=== PATIENT | male | born 1965 | race Two or more races ===

== ENCOUNTER 2016-12-20 18:51 | Emergency (ER) | payer BC ==
[~2016-12-20] VITALS: Ht 160 cm; Wt 76.2 kg
[2016-12-20 19:00] VITALS: BP 154/90
[2016-12-20] MEDS ORDERED: IBUPROFEN 600 MG TAB PO ONE (20:00)
[2016-12-20] MEDS ORDERED: CYCLOBENZAPRINE HCL 10 MG TAB PO ONE (20:00)
== END 2016-12-20 20:31 | disposition home or self-care (01) ==
LOC: ER 18:55
DX: S46.812A Strain of other muscles, fascia and tendons at shoulder and upper arm level, left arm, initial encounter (principal); V49.9XXA Car occupant (driver) (passenger) injured in unspecified traffic accident, initial encounter; Y93.89 Activity, other specified; Y99.8 Other external cause status; Y92.488 Other paved roadways as the place of occurrence of the external cause

== ENCOUNTER → 2020-10-13 | Outpatient (CLI) | payer BC ==
[2020-10-13 18:06] LABS: BUN/Creatinine Ratio 19.1; Calcium 8.8 mg/dL (8.5-10.1); Potassium 5.3 mmol/L (3.5-5.1)
== END | disposition home or self-care (01) ==
LOC: LAB 17:39
PROVIDERS: ATTEND Internal Medicine
DX: N18.9 Chronic kidney disease, unspecified (principal); E87.5 Hyperkalemia
CPT/HCPCS: 36415; 80048

== ENCOUNTER → 2020-11-11 | Outpatient (CLI) | payer BC ==
[2020-11-11 18:08] LABS: BUN/Creatinine Ratio 13.6; Calcium 8.3 mg/dL (8.5-10.1); Potassium 4.1 mmol/L (3.5-5.1)
== END | disposition home or self-care (01) ==
LOC: LAB 17:06
PROVIDERS: ATTEND Internal Medicine
DX: I12.9 Hypertensive chronic kidney disease with stage 1 through stage 4 chronic kidney disease, or unspecified chronic kidney disease (principal); N18.4 Chronic kidney disease, stage 4 (severe); E79.0 Hyperuricemia without signs of inflammatory arthritis and tophaceous disease
CPT/HCPCS: 36415; 80048

== ENCOUNTER → 2020-12-31 | Outpatient (CLI) | payer BC | END | disposition home or self-care (01) | LOC: LAB 09:52 | PROVIDERS: ATTEND Nurse Practitioner Family | DX: Z20.822 Contact with and (suspected) exposure to COVID-19 (principal) | CPT/HCPCS: C9803; U0003 ==

== ENCOUNTER 2022-02-19 09:15 | Inpatient (IN) | payer BC, MEDICAID ==
[~2022-02-19] VITALS: Ht 160 cm; Wt 79.2 kg
[2022-02-19] MEDS ORDERED: SODIUM CHLORIDE 0.9% 1,000 ML IVB ONE (09:30)
[2022-02-19 10:06] LABS: Basophils # (auto) 0 10 ^3/uL (0-0.2); Basophils % (auto) 0.6 % (0.0-2.0); Eosinophils # (auto) 0.5 10 ^3/uL (0-0.8); Eosinophils % (auto) 7.1 % (0.0-7.0); Hematocrit 40.8 % (41.0-53.0); Hemoglobin 13.3 g/dL (13.5-17.5); Lymphocytes # (auto) 1.7 10 ^3/uL (0.4-5.4); Lymphocytes % (auto) 22.6 % (10.0-50.0); Mean Corpuscular Hemoglobin 28.6 pg (28.0-32.0); Mean Corpuscular Hgb Conc. 32.6 g/dL (32.0-36.0); Mean Corpuscular Volume 87.7 fL (80.0-100.0); Monocytes # (auto) 0.5 10 ^3/uL (0-1.3); Monocytes % (auto) 5.9 % (0.0-12.0); Neutrophils # (auto) 4.9 10 ^3/uL (1.6-8.6); Neutrophils % (auto) 63.8 % (37.0-80.0); Nucleated Red Blood Cells % 0.1 %; Red Blood Cells 4.65 10^6/uL (4.5-5.90); Red Cell Distribution Width 13.7 % (11.8-14.3); White Blood Cell 7.6 10^3/uL (4.4-10.8)
[2022-02-19 10:15] LABS: Urine WBC None Seen /hpf (0 - 3)
[2022-02-19 10:15] LABS: Albumin 4.1 g/dL (3.4-5.0); Calcium 8.5 mg/dL (8.5-10.1); Potassium 4.5 mmol/L (3.5-5.1)
[2022-02-19 10:23] LABS: BUN/Creatinine Ratio 14.7; Bilirubin, Total 0.4 mg/dL (0.2-1.0); Total Protein 8.4 g/dL (6.4-8.2)
[2022-02-19 10:49] LABS: Urine Bacteria NONE SEEN /hpf (None Seen); Urine Blood 1+ /uL (Negative); Urine Specific Gravity 1.011 (1.001-1.035)
[2022-02-19] MEDS ORDERED: MORPHINE SULFATE INJ 2 MG/ml SYRG IV PRN (12:30)
[2022-02-19] MEDS ORDERED: hydrALAZINE HCL 20 MG/ML VL IV PRN (13:15)
[2022-02-19] MEDS: SODIUM CHLORIDE 0.9% 1,000 ML IV SCH ×2 (13:48→22:19)
[2022-02-19 13:52] LABS: Cholesterol 118 mg/dL (< 200); HDL Cholesterol 27 mg/dL (40-59); LDL Cholesterol 86 mg/dL (< 100); Magnesium 2.2 mg/dL (1.6-2.6); Phosphorus 3.9 mg/dL (2.5-4.90); Triglycerides 193 mg/dL (< 150)
[2022-02-19 17:00] VITALS: BP 133/77
[2022-02-19 20:00] VITALS: BP 107/69
[2022-02-19 21:59] VITALS: BP 107/69
[2022-02-20] MEDS: SODIUM CHLORIDE 0.9% 1,000 ML IV SCH (02:35)
[2022-02-20 05:00] VITALS: BP 150/71
[2022-02-20 06:11] LABS: Basophils # (auto) 0.1 10 ^3/uL (0-0.2); Basophils % (auto) 0.9 % (0.0-2.0); Eosinophils # (auto) 0.7 10 ^3/uL (0-0.8); Eosinophils % (auto) 9.9 % (0.0-7.0); Hematocrit 36.9 % (41.0-53.0); Hemoglobin 12.4 g/dL (13.5-17.5); Lymphocytes # (auto) 2.1 10 ^3/uL (0.4-5.4); Lymphocytes % (auto) 29.3 % (10.0-50.0); Mean Corpuscular Hemoglobin 29.5 pg (28.0-32.0); Mean Corpuscular Hgb Conc. 33.5 g/dL (32.0-36.0); Monocytes # (auto) 0.6 10 ^3/uL (0-1.3); Monocytes % (auto) 8.2 % (0.0-12.0); Neutrophils # (auto) 3.7 10 ^3/uL (1.6-8.6); Neutrophils % (auto) 51.7 % (37.0-80.0); Nucleated Red Blood Cells % 0.1 %; Red Cell Distribution Width 13.6 % (11.8-14.3); White Blood Cell 7.1 10^3/uL (4.4-10.8)
[2022-02-20 06:29] LABS: Albumin 3.8 g/dL (3.4-5.0); Calcium 8.3 mg/dL (8.5-10.1); Potassium 4.8 mmol/L (3.5-5.1)
[2022-02-20 06:33] LABS: BUN/Creatinine Ratio 14.9; Bilirubin, Total 0.4 mg/dL (0.2-1.0); Total Protein 7.4 g/dL (6.4-8.2)
[2022-02-20 09:00] VITALS: BP 127/66
[2022-02-20 13:00] VITALS: BP 112/52
[2022-02-20 17:00] VITALS: BP 133/71
[2022-02-20 22:00] VITALS: BP 120/62
[2022-02-20] MEDS ORDERED: CARVEDILOL 3.125 MG TAB PO SCH (22:00)
[2022-02-21 05:00] VITALS: BP 111/64
[2022-02-21 05:45] LABS: Albumin 3.5 g/dL (3.4-5.0); Calcium 8.4 mg/dL (8.5-10.1); Potassium 4.6 mmol/L (3.5-5.1)
[2022-02-21 05:49] LABS: Bilirubin, Total 0.4 mg/dL (0.2-1.0)
[2022-02-21 09:00] VITALS: BP 128/57
[2022-02-21] MEDS: NIFEdipine ER 30 MG TAB PO SCH ×2 (09:57→10:15)
[2022-02-21 13:00] VITALS: BP 137/83
[2022-02-21] MEDS ORDERED: NITROGLYCERIN 0.4 MG SL TAB SL PRN (14:15)
[2022-02-21] MEDS ORDERED: MORPHINE SULFATE INJ 2 MG/ml SYRG IV PRN (14:15)
[2022-02-21] MEDS ORDERED: ERGOCALCIFEROL 50,000 UNIT(1.25MG) CAP PO SCH (14:15)
[2022-02-21] MEDS ORDERED: ASPirin 81 mg TAB PO ONE (14:15)
[2022-02-21 16:10] LABS: Hepatitis C Antibody Negative (Negative)
[2022-02-21 17:00] VITALS: BP 136/64
[2022-02-21 22:00] VITALS: BP 132/60
[2022-02-21] MEDS: METOPROLOL TARTRATE 25 MG TAB PO SCH (22:00)
[2022-02-22 05:00] VITALS: BP 141/66
[2022-02-22 06:09] LABS: Basophils # (auto) 0.1 10 ^3/uL (0-0.2); Eosinophils # (auto) 0.6 10 ^3/uL (0-0.8); Eosinophils % (auto) 8.1 % (0.0-7.0); Hematocrit 38.8 % (41.0-53.0); Hemoglobin 13.2 g/dL (13.5-17.5); Lymphocytes # (auto) 2.2 10 ^3/uL (0.4-5.4); Lymphocytes % (auto) 29.5 % (10.0-50.0); Mean Corpuscular Hemoglobin 29.8 pg (28.0-32.0); Mean Corpuscular Hgb Conc. 34.1 g/dL (32.0-36.0); Mean Corpuscular Volume 87.4 fL (80.0-100.0); Monocytes # (auto) 0.5 10 ^3/uL (0-1.3); Monocytes % (auto) 7.3 % (0.0-12.0); Neutrophils % (auto) 54.1 % (37.0-80.0); Nucleated Red Blood Cells % 0.1 %; Red Blood Cells 4.44 10^6/uL (4.5-5.90); Red Cell Distribution Width 13.4 % (11.8-14.3); White Blood Cell 7.4 10^3/uL (4.4-10.8)
[2022-02-22 06:29] LABS: BUN/Creatinine Ratio 14.6; Calcium 8.9 mg/dL (8.5-10.1); Potassium 4.6 mmol/L (3.5-5.1)
[2022-02-22 08:05] VITALS: BP 130/92
[2022-02-22] MEDS: NIFEdipine ER 30 MG TAB PO SCH (09:27)
[2022-02-22] MEDS: METOPROLOL TARTRATE 25 MG TAB PO SCH (09:28)
[2022-02-22] MEDS ORDERED: ASPirin 81 mg TAB PO SCH (10:00)
[2022-02-22] MEDS ORDERED: ATOR20TA50 PO (10:04)
[2022-02-22] MEDS ORDERED: ERGO1CAP23 PO (10:04)
[2022-02-22] MEDS ORDERED: NIFE1TAB31 PO (10:04)
[2022-02-22] MEDS ORDERED: ASPI-325 PO (10:04)
[2022-02-22] MEDS ORDERED: MET25T PO (10:04)
[2022-02-22] MEDS ORDERED: NITR0.4S29 SL (11:25)
[2022-02-22 11:39] VITALS: BP 130/92
[2022-02-22 12:05] VITALS: BP 108/69
[2022-02-22] MEDS ORDERED: ATORVASTATIN 20 MG TAB PO SCH (22:00)
== END 2022-02-22 12:40 | disposition home or self-care (01) | DRG 684 ==
LOC: ER 09:15 → TELE 12:30 → TELE-EAST 15:05
PROVIDERS: ADMIT Registered Nurse; ATTEND Internal Medicine Pulmonary Disease
DX: N17.0 Acute kidney failure with tubular necrosis (principal); I12.9 Hypertensive chronic kidney disease with stage 1 through stage 4 chronic kidney disease, or unspecified chronic kidney disease; N18.4 Chronic kidney disease, stage 4 (severe); E66.9 Obesity, unspecified; E78.5 Hyperlipidemia, unspecified; I49.3 Ventricular premature depolarization; R73.03 Prediabetes; R80.9 Proteinuria, unspecified; Z20.822 Contact with and (suspected) exposure to COVID-19; D63.1 Anemia in chronic kidney disease; R31.29 Other microscopic hematuria; I48.91 Unspecified atrial fibrillation; I25.10 Atherosclerotic heart disease of native coronary artery without angina pectoris; Z68.30 Body mass index [BMI] 30.0-30.9, adult
CPT/HCPCS: 36415; 71046; 76775; 80048; 80053; 80061; 81001; 82306; 83036; 83605; 83690; 83735; 83880; 83970; 84100; 84443; 85025; 86803; 87340; 93005; 93306; 93886; 96360; G0378

== ENCOUNTER → 2022-05-10 | Outpatient (CLI) | payer BC ==
[~2022-05-10] VITALS: Ht 160 cm; Wt 76.2 kg
[~2022-05-10] MED LIST: ADENOSINE 64 MG in GIVE UN-DILUTED 0 ML IV STA; ASPI-325 PO; ATOR20TA50 PO; ERGO1CAP23 PO; MET25T PO; NIFE1TAB31 PO; NITR0.4S29 SL
[2022-05-10 09:12] VITALS: BP 161/88
== END | disposition home or self-care (01) ==
LOC: XY 07:23
PROVIDERS: ATTEND Internal Medicine
DX: I49.3 Ventricular premature depolarization (principal); I20.8 Other forms of angina pectoris
CPT/HCPCS: 78452; 93017; A9500; J0153

== ENCOUNTER 2022-10-21 16:50 | Emergency (ER) | payer BC ==
[~2022-10-21] VITALS: Ht 160 cm; Wt 78.6 kg
[~2022-10-21 16:50] MED LIST changes: -ADENOSINE 64 MG in GIVE UN-DILUTED 0 ML IV STA
[2022-10-21 17:53] LABS: Basophils # (auto) 0.1 10 ^3/uL (0-0.2); Basophils % (auto) 1.2 % (0.0-2.0); Eosinophils # (auto) 0.4 10 ^3/uL (0-0.8); Eosinophils % (auto) 3.7 % (0.0-7.0); Hematocrit 38.6 % (41.0-53.0); Hemoglobin 12.9 g/dL (13.5-17.5); Lymphocytes # (auto) 1.7 10 ^3/uL (0.4-5.4); Lymphocytes % (auto) 17.4 % (10.0-50.0); Mean Corpuscular Hemoglobin 29.6 pg (28.0-32.0); Mean Corpuscular Hgb Conc. 33.4 g/dL (32.0-36.0); Mean Corpuscular Volume 88.8 fL (80.0-100.0); Monocytes # (auto) 1.1 10 ^3/uL (0-1.3); Monocytes % (auto) 11.1 % (0.0-12.0); Neutrophils # (auto) 6.4 10 ^3/uL (1.6-8.6); Neutrophils % (auto) 66.6 % (37.0-80.0); Nucleated Red Blood Cells % 0.1 %; Red Blood Cells 4.34 10^6/uL (4.5-5.90); Red Cell Distribution Width 13.9 % (11.8-14.3); White Blood Cell 9.6 10^3/uL (4.4-10.8)
[2022-10-21 18:10] LABS: Albumin 4.3 g/dL (3.4-5.0); Calcium 8.9 mg/dL (8.5-10.1); Potassium 4.2 mmol/L (3.5-5.1)
[2022-10-21 18:14] LABS: BUN/Creatinine Ratio 10.9 (10.0-20.0); Bilirubin, Total 0.3 mg/dL (0.2-1.0); Total Protein 8.5 g/dL (6.4-8.2)
[2022-10-21] MEDS ORDERED: SODIUM CHLORIDE 0.9% 500 ML IV ONE (19:00)
[2022-10-21 20:00] VITALS: BP 132/81
== END 2022-10-21 20:19 | disposition home or self-care (01) ==
LOC: ER 16:50
DX: N28.9 Disorder of kidney and ureter, unspecified (principal); I10 Essential (primary) hypertension
CPT/HCPCS: 36415; 80053; 85025; 93005; 96360; 99284; J7040

== ENCOUNTER 2023-04-05 07:07 | Inpatient (IN) | payer BC ==
[2023-04-03 15:07] LABS: Basophils # (auto) 0.1 10 ^3/uL (0-0.2); Basophils % (auto) 0.8 % (0.0-2.0); Eosinophils # (auto) 0.2 10 ^3/uL (0-0.8); Hematocrit 36.7 % (41.0-53.0); Hemoglobin 12.3 g/dL (13.5-17.5); Lymphocytes # (auto) 1.8 10 ^3/uL (0.4-5.4); Lymphocytes % (auto) 21.2 % (10.0-50.0); Mean Corpuscular Hgb Conc. 33.6 g/dL (32.0-36.0); Mean Corpuscular Volume 89.3 fL (80.0-100.0); Monocytes # (auto) 0.8 10 ^3/uL (0-1.3); Monocytes % (auto) 9.8 % (0.0-12.0); Neutrophils # (auto) 5.7 10 ^3/uL (1.6-8.6); Neutrophils % (auto) 66.2 % (37.0-80.0); Nucleated Red Blood Cells % 0.1 %; Red Blood Cells 4.11 10^6/uL (4.5-5.90); Red Cell Distribution Width 14.2 % (11.8-14.3); White Blood Cell 8.6 10^3/uL (4.4-10.8)
[2023-04-03 15:26] LABS: INR 1.06 (0.9-1.15); Partial Thromboplastin Time 28.5 SEC (24.5-34.5); Prothrombin Time 11.1 sec (9.3-11.8)
[2023-04-03 15:36] LABS: Alanine Aminotransferase 51 U/L (7-40); Albumin 4.4 g/dL (3.2-4.8); Alkaline Phosphatase 53 U/L (46-116); Anion Gap 9.6 (5-15); Aspartate Aminotransferase 27 U/L (13-40); BUN/Creatinine Ratio 8.1 (10.0-20.0); Blood Urea Nitrogen 65 mg/dL (9-23); Carbon Dioxide 24.4 mmol/L (20-30); Chloride 101 mmol/L (98-107); Glucose 96 mg/dL (74-106); Potassium 4.4 mmol/L (3.5-5.1); Sodium 135 mmol/L (136-145)
[2023-04-03 15:37] LABS: Bilirubin, Total 0.5 mg/dL (0.2-1.0); Total Protein 7.4 g/dL (5.7-8.2)
[2023-04-05] VITALS (17 sets, daily range): BP systolic 107–154; BP diastolic 56–98; PULSE 52–66; RESP 12–20; TEMP 98–98.6; O2SAT 93–97
[~2023-04-05] VITALS: Ht 160 cm; Wt 93.0 kg
[~2023-04-05 07:07] MED LIST changes: +AMIO200T33 PO; +AMLO1TAB23 PO; +CALC0.25 PO; -ERGO1CAP23 PO; +FURO1TAB31 PO; +LOSA50TA46 PO; -MET25T PO; +METO-289 PO; -NIFE1TAB31 PO; -NITR0.4S29 SL
[2023-04-05] MEDS ORDERED: HEPARIN IN NS 1000Units/500mL 1,500 ML ONE (08:25)
[2023-04-05] MEDS ORDERED: IODIXANOL 320MG/ML 100ML BTL IV ONE (08:25)
[2023-04-05] MEDS ORDERED: LIDOCAINE 2%HCL (LOCAL ANESTH.) INJ 20ML MDV ONE (08:25)
[2023-04-05] MEDS ORDERED: MIDAZOLAM HCL 2MG/2ML 2ml VIAL (1mg/ml) ONE (08:47)
[2023-04-05] MEDS ORDERED: HEPARIN SODIUM (PORCINE) 5000 UNITS/ML 1ML VIAL ONE (08:47)
[2023-04-05] MEDS ORDERED: ANGIOMAX 250 MG VIAL IV ONE (08:47)
[2023-04-05] MEDS ORDERED: fentaNYL CITRATE 100 MCG/2 ML VL ONE (08:47)
[2023-04-05] MEDS ORDERED: VERAPAMIL 2.5MG/ML INJ 2ML VIAL IV ONE (08:47)
[2023-04-05] MEDS ORDERED: SODIUM CHL 0.9% 0 ML ONE (08:48)
[2023-04-05] MEDS ORDERED: MORPHINE SULFATE INJ 2 MG/ml SYRG IV PRN (10:45)
[2023-04-05] MEDS ORDERED: NITROGLYCERIN 0.4 MG SL TAB SL PRN (10:45)
[2023-04-05 11:25] LABS: Alanine Aminotransferase 41 U/L (7-40); Albumin 3.9 g/dL (3.2-4.8); Alkaline Phosphatase 48 U/L (46-116); Anion Gap 8.8 (5-15); Aspartate Aminotransferase 26 U/L (13-40); BUN/Creatinine Ratio 8.3 (10.0-20.0); Blood Urea Nitrogen 59 mg/dL (9-23); Calcium 8.5 mg/dL (8.5-10.1); Carbon Dioxide 24.2 mmol/L (20-30); Chloride 105 mmol/L (98-107); Glucose 172 mg/dL (74-106); Potassium 3.9 mmol/L (3.5-5.1); Sodium 138 mmol/L (136-145)
[2023-04-05 11:26] LABS: Basophils # (auto) 0 10 ^3/uL (0-0.2); Basophils % (auto) 0.8 % (0.0-2.0); Bilirubin, Total 0.4 mg/dL (0.2-1.0); Eosinophils # (auto) 0.2 10 ^3/uL (0-0.8); Eosinophils % (auto) 3.3 % (0.0-7.0); Hematocrit 33.9 % (41.0-53.0); Hemoglobin 11.3 g/dL (13.5-17.5); Lymphocytes # (auto) 1.2 10 ^3/uL (0.4-5.4); Lymphocytes % (auto) 20.2 % (10.0-50.0); Mean Corpuscular Hemoglobin 30.3 pg (28.0-32.0); Mean Corpuscular Hgb Conc. 33.5 g/dL (32.0-36.0); Mean Corpuscular Volume 90.5 fL (80.0-100.0); Monocytes # (auto) 0.4 10 ^3/uL (0-1.3); Monocytes % (auto) 7.2 % (0.0-12.0); Neutrophils % (auto) 68.5 % (37.0-80.0); Nucleated Red Blood Cells % 0.1 %; Red Blood Cells 3.75 10^6/uL (4.5-5.90); Red Cell Distribution Width 13.9 % (11.8-14.3); Total Protein 6.6 g/dL (5.7-8.2); White Blood Cell 5.9 10^3/uL (4.4-10.8)
[2023-04-05] MEDS: SODIUM CHLORIDE 0.9% 1,000 ML IV SCH ×2 (14:30→16:40)
[2023-04-05] MEDS ORDERED: TAMS0.4C36 PO (17:53)
[2023-04-05] MEDS ORDERED: ERGO1CAP12 PO (17:53)
[2023-04-05] MEDS: PERITONEAL DIALYSIS 2.5% SOLN 2,000 ML IP SCH (19:31)
[2023-04-05] MEDS ORDERED: ACETAMINOPHEN 325 MG TAB PO PRN (20:45)
[2023-04-05] MEDS ORDERED: HYDROcodone-ACET 5/325MG TAB PO PRN (20:45)
[2023-04-05] MEDS ORDERED: hydrALAZINE HCL 20 MG/ML VL IV PRN (20:45)
[2023-04-05] MEDS ORDERED: ONDANSETRON HCL 4 MG/2 ML VIAL IV PRN (20:45)
[2023-04-05] MEDS ORDERED: ATORVASTATIN 20 MG TAB PO SCH (22:00)
[2023-04-05] MEDS: HEPARIN SODIUM (PORCINE) 5000 UNITS/ML 1ML VIAL SC SCH ×2 (22:00→22:07)
[2023-04-06] MEDS: PERITONEAL DIALYSIS 2.5% SOLN 2,000 ML IP SCH ×2 (01:54→08:23)
[2023-04-06 05:25] VITALS: BP 123/82; PULSE 66; RESP 20; TEMP 97.7; O2SAT 96
[2023-04-06 08:00] VITALS: BP 141/85; PULSE 57; PULSE 65; RESP 16; TEMP 98.1; O2SAT 94
[2023-04-06 08:02] LABS: Basophils # (auto) 0 10 ^3/uL (0-0.2); Basophils % (auto) 0.8 % (0.0-2.0); Eosinophils # (auto) 0.2 10 ^3/uL (0-0.8); Eosinophils % (auto) 3.6 % (0.0-7.0); Hematocrit 35.2 % (41.0-53.0); Lymphocytes % (auto) 16.6 % (10.0-50.0); Mean Corpuscular Hemoglobin 30.7 pg (28.0-32.0); Mean Corpuscular Volume 90.2 fL (80.0-100.0); Monocytes # (auto) 0.7 10 ^3/uL (0-1.3); Neutrophils # (auto) 4.3 10 ^3/uL (1.6-8.6); Red Cell Distribution Width 13.8 % (11.8-14.3); White Blood Cell 6.3 10^3/uL (4.4-10.8)
[2023-04-06 08:21] LABS: Alanine Aminotransferase 42 U/L (7-40); Alkaline Phosphatase 50 U/L (46-116); Anion Gap 8 (5-15); Aspartate Aminotransferase 22 U/L (13-40); BUN/Creatinine Ratio 7.5 (10.0-20.0); Calcium 8.8 mg/dL (8.5-10.1); Carbon Dioxide 25 mmol/L (20-30); Chloride 107 mmol/L (98-107); Glucose 118 mg/dL (74-106); Magnesium 1.9 mg/dL (1.6-2.6); Potassium 4.1 mmol/L (3.5-5.1); Sodium 140 mmol/L (136-145)
[2023-04-06 08:22] LABS: Phosphorus 4.3 mg/dL (2.4-5.1)
[2023-04-06 08:23] LABS: Bilirubin, Total 0.4 mg/dL (0.2-1.0); Total Protein 6.8 g/dL (5.7-8.2)
[2023-04-06 08:31] LABS: Blood Urea Nitrogen 49 mg/dL (9-23)
[2023-04-06] MEDS ORDERED: AMIODARONE HCL 200 MG TAB PO SCH (10:00)
[2023-04-06] MEDS: HEPARIN SODIUM (PORCINE) 5000 UNITS/ML 1ML VIAL SC SCH (10:00)
[2023-04-06] MEDS ORDERED: ASPirin 81 mg TAB PO SCH (10:00)
[2023-04-06] MEDS ORDERED: METOPROLOL SUCCINATE XL 50 MG TAB PO SCH (10:00)
[2023-04-06 12:00] VITALS: BP 141/87; PULSE 69; RESP 16; TEMP 97.8; O2SAT 96
[2023-04-06] MEDS ORDERED: LOSA25TA15 PO (13:31)
[2023-04-06 14:17] VITALS: BP 141/87; PULSE 69; RESP 16; TEMP 97.8; O2SAT 96
[2023-04-06] MEDS ORDERED: TAMSULOSIN HYDROCHLORIDE 0.4 MG CAP PO SCH (18:00)
== END 2023-04-06 15:05 | disposition home or self-care (01) | DRG 286 ==
LOC: CATH 07:07 → TELE 10:38 → TELE-EAST 15:28
PROVIDERS: ADMIT Nurse Practitioner Family; ATTEND Nurse Practitioner
PROC: 4A023N7 Measurement of Cardiac Sampling and Pressure, Left Heart, Percutaneous Approach (ICD-10-PCS; principal; 2023-04-05)
PROC: B211YZZ Fluoroscopy of Multiple Coronary Arteries using Other Contrast (ICD-10-PCS; 2023-04-05)
PROC: B215YZZ Fluoroscopy of Left Heart using Other Contrast (ICD-10-PCS; 2023-04-05)
DX: I49.8 Other specified cardiac arrhythmias (principal); N18.6 End stage renal disease; N25.81 Secondary hyperparathyroidism of renal origin; I12.0 Hypertensive chronic kidney disease with stage 5 chronic kidney disease or end stage renal disease; E78.5 Hyperlipidemia, unspecified; E66.9 Obesity, unspecified; D63.1 Anemia in chronic kidney disease; E83.39 Other disorders of phosphorus metabolism; R73.03 Prediabetes; Z99.2 Dependence on renal dialysis; Z82.49 Family history of ischemic heart disease and other diseases of the circulatory system; Z80.42 Family history of malignant neoplasm of prostate; Z68.36 Body mass index [BMI] 36.0-36.9, adult
CPT/HCPCS: 36415; 80053; 82533; 83735; 84100; 85025; 85610; 85730; 93458; 99152; G0378; J2250; Q9967

== ENCOUNTER → 2024-07-02 | Outpatient (CLI) | payer BC ==
[~2024-07-02] VITALS: Ht 160 cm; Wt 80.7 kg
[~2024-07-02] MED LIST changes: -AMLO1TAB23 PO; +ERGO1CAP12 PO; +LOSA-533 PO; -LOSA50TA46 PO; -METO-289 PO; +REGADENOSON 0.4 MG/5 ML SYRG IV ONE; +TAMS0.4C39 PO
[2024-07-02] MEDS: ADENOSINE 68 MG in GIVE UN-DILUTED 0 ML IV STA (10:06)
--- NOTE | 2024-07-02 14:11 | DVHSR ---
APPROVED REPORT Exam: Nuclear Stress Test BMI: 0 Stress Test Details HR Max Heart Rate (APMHR): 160.371268 bpm Target HR (85% APMHR): 136.846410 bpm BP ECG Stress ECG Conclusion There is a medium area of severely reduced uptake in the entire segment of the inferior wall which is seen both in rest and stress images likely representing old myocardial infarction in the inferior wa ll. No evidence of ischemia was detected. Well-preserved left ventricular systolic function at 61%. Impression: Old inferior myocardial infarction, well-preserved ventricular systolic function, low ri sk study. NM EXAM: Myocardial Perfusion REST/STRESS Imaging Protocol: Rest Tc-99m/Stress Tc-99m 1 day Resting Data Rest SPECT myocardial perfusion imaging was performed in supine position 60 minutes following the int ravenous injection of 11.8 mCi of Tc-99m Sestamibi. Time of rest injection: 0845 Date: 07/02/2024 Time of rest imagin Date: 07/02/2024 Administration Route: IV Administration Site: Left AC Pharmacologic Stress Time of stress injection: 1003 Date: 07/02/2024 Time of stress imagin Date: 07/02/2024 Administration Route: IV Administration Site: Left AC Gated Stress SPECT was performed 60 minutes after stress injection. The images were gated to evaluate regional wall motion and calculate left ventricular ejection fracti on. Stress only was performed in the Supine position. Perfusion There is a medium area of severely reduced uptake in the entire segment of the inferior wall which is seen on the stress images as well as the resting images. This area and is most consistent with myoc ardial scar. Nuclear Conclusion ECG Findings: negative for ischemia Clinical Findings: negative for ischemia Nuclear Findings: negative for ischemia Exercise Capacity: not assessed Left Ventricular Function: normal Risk Study: low There is a medium area of severely reduced uptake in the entire segment of the inferior wall which is seen both in rest and stress images likely representing old myocardial infarction in the inferior wa ll. No evidence of ischemia was detected. Well-preserved left ventricular systolic function at 61%. Impression: Old inferior myocardial infarction, well-preserved ventricular systolic function, low ri sk study.
== END | disposition home or self-care (01) ==
LOC: XYW 09:35
PROVIDERS: ATTEND Specialist
DX: I25.2 Old myocardial infarction (principal); I12.0 Hypertensive chronic kidney disease with stage 5 chronic kidney disease or end stage renal disease; N18.6 End stage renal disease; E78.5 Hyperlipidemia, unspecified; Z99.2 Dependence on renal dialysis
CPT/HCPCS: 78452; 93017; A9500; J0153